=== PATIENT | male | born 1965 | race American Indian/Alaskan Native ===

== ENCOUNTER 2017-06-27 10:23 | Emergency (ER) | payer OTHER ==
[2017-06-27 11:22] VITALS: BP 142/102
--- NOTE | 2017-06-27 13:51 | Emergency Department Report ---
HPI - General Chief Complaint: Extremity Injury, Lower Time Seen by Provider: 06/27/17 13:26 - HPI HPI: This is a 52-year-old [place] male presents to the emergency department with a complaint of a 2 day history of pain and redness to the left great toe that he believes is a gout flare up. It is consistent with his previous gout flareups. 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 He says that when he eats MRE's while doing the training sometimes will cause his current flareup. He says that he also has a history of hypertension and has not taken his meds for the past 2 days. He denies any fever, chest pain, shortness of breath, nausea, vomiting or diaphoresis. He has not taken anything for her symptoms prior to presentation. ED Past Medical Hx - Past Medical History Previous Medical History?: Yes Hx Hypertension: Yes Additional medical history: gout - Surgical History Past Surgical History?: No - Social History Smoking Status: Never Smoker Substance Use Type: Alcohol - Medications Home Medications: Home Medications Medication Instructions Recorded Confirmed Last Taken Type Colchicine 1.2 mg PO ONCE #3 tablet 06/27/17 Unknown Rx ED Review of Systems ROS: Stated complaint: GOUT Other details as noted in HPI Comment: All other systems reviewed and negative Constitutional: denies: chills, fever Eyes: denies: eye pain, eye discharge, vision change ENT: denies: ear pain, throat pain Respiratory: denies: cough, shortness of breath, wheezing Cardiovascular: denies: chest pain, palpitations Gastrointestinal: denies: abdominal pain, nausea, diarrhea Genitourinary: denies: urgency, dysuria Musculoskeletal: arthralgia. denies: back pain Skin: denies: rash, lesions Neurological: denies: headache, weakness, paresthesias Physical Exam - Physical Exam Vital Signs: Vital Signs 06/27/17 11:19 Temperature 98.0 F Pulse Rate 77 Respiratory 18 Rate Blood Pressure 142/102 O2 Sat by Pulse 100 Oximetry Physical Exam: GENERAL: The patient is well-developed well-nourished. HENT: Normocephalic. Atraumatic. Patient has moist mucous membranes. EYES: Extraocular motions are intact. Pupils equal reactive to light bilaterally. NECK: Supple. Trachea is midline. CHEST/LUNGS: Clear to auscultation. There is no respiratory distress noted. HEART/CARDIOVASCULAR: Regular. There is no tachycardia. There is no murmur. ABDOMEN: Abdomen is soft, nontender. Patient has normal bowel sounds. There is no abdominal distention. SKIN: Skin is warm and dry. There is some erythema and warmth to the left great toe. NEURO: The patient is awake, alert, and oriented. The patient is cooperative. The patient has no focal neurologic deficits. The patient has normal speech. MUSCULOSKELETAL: There is tenderness palpation to the left great toe. There is no evidence of acute injury. ED Course Vital Signs 06/27/17 11:19 Temperature 98.0 F Pulse Rate 77 Respiratory 18 Rate Blood Pressure 142/102 O2 Sat by Pulse 100 Oximetry ED Medical Decision Making - Medical Decision Making Patient has a history of gout and this presentation with left great toe pain, redness and warmth appears consistent with a gouty arthritis flareup. Vital signs stable being afebrile. No history of any renal insufficiency that he knows of. Given a shot of Solu-Medrol and sent home with a prescription for colchicine. He has been encouraged to follow up with his PCP and return to the ER with any worsening of symptoms or any acute distress. - Differential Diagnosis gout, cellulitis, osteoarthritis Critical Care Time: No Critical care attestation.: If time is entered above; I have spent that time in minutes in the direct care of this critically ill patient, excluding procedure time. ED Disposition Clinical Impression: Gouty arthritis of left great toe Disposition: DC-01 TO HOME OR SELFCARE Is pt being admited?: No Condition: Stable Instructions: Acute Gouty Arthritis (ED) Additional Instructions: Please follow-up with your primary care doctor as soon as you are able to do so. Return to the emergency Department with any worsening of your symptoms or any acute distress. Prescriptions: Colchicine 1.2 mg PO ONCE #3 tablet Referrals: PRIMARY CAREMD [Primary Care Provider] - [facility]ESHIA Time of Disposition: 13:57
== END 2017-06-27 14:01 | disposition home or self-care (01) ==
LOC: ED 10:23
DX: M10.9 Gout, unspecified (principal); I10 Essential (primary) hypertension
CPT/HCPCS: 96372; 99282; J2930